=== PATIENT | male | born 1945 ===

== ENCOUNTER 2017-10-03 06:50 | Day surgery (SDC) | payer MEDICARE, MEDICAID ==
[2017-09-25 11:02] VITALS: BMI 26.6
[2017-10-03 07:30] LABS: BASO # 0.04 K/mm3 (0.0-2.0); BASO % 0.6 % (0.0-3.0); EOS # 0.2 (0.0-0.7); EOS % 3.3 % (1.5-5.0); GRAN # 2.78 (1.4-6.5); GRAN % 44.2 % (50.0-68.0); HEMATOCRIT 49.9 % (42.0-52.0); LYMPH # 2.7 (1.2-3.4); LYMPH % 43.2 % (22.0-35.0); MEAN CELL VOLUME 71.4 fl (80.0-105.0); MEAN CORPUSCULAR HEMOGLOBIN 23.5 pg (25.0-35.0); MEAN CORPUSCULAR HGB CONC 32.9 g/dl (31.0-37.0); MONO # 0.6 (0.1-0.6); MONO % 8.7 % (1.0-6.0); PLATELET COUNT 148 10^3/uL (120.0-450.0); RED CELL DISTRIBUTION WIDTH 15.8 % (11.5-14.5); WHITE BLOOD COUNT 6.3 10^3/ul (4.5-11.0)
[2017-10-03 07:44] LABS: INR 1.16 (0.93-1.08); PARTIAL THROMBOPLASTIN TIME 60.7 Seconds (25.1-36.5)
[2017-10-03 07:47] LABS: CALCIUM 9.3 mg/dL (8.4-10.5); POTASSIUM 4.2 mmol/L (3.6-5.0)
[2017-10-03] MEDS ORDERED: Lidocaine 2% Inj (20ml) ONE (08:33)
[2017-10-03] MEDS ORDERED: Iodixanol 320 MG/ML 200 ML BOTTLE IV ONE (08:34)
[2017-10-03] MEDS ORDERED: Midazolam 2 MG/2 ML VIAL ONE ×3 (08:34→09:46)
[2017-10-03] MEDS ORDERED: Iohexol 350mgl/ml 50 ML ONE (08:34)
[2017-10-03] MEDS ORDERED: Morphine 2 mg/ml ISec ONE (10:09)
[2017-10-03] MEDS ORDERED: Sodium Chloride 0.9% 1,000 ML IV SCH (11:00)
--- NOTE | 2017-10-03 11:54 | CARDCATH ---
PROCEDURE DATE: 10/03/2017 CARDIAC AND CATHETERIZATION AND PTCA HISTORY: The patient is a 72-year-old male with multiple cardiac risk factors including hypertension, hypercholesterolemia and diabetes mellitus and is a former smoker years ago who presents with chest pain. A stress test was abnormal. Because of this, cardiac catheterization was recommended. Pre-procedure, the patient was noted to have a creatinine of 1.6 in which he was then given aggressive IV hydration with normal saline. The right femoral artery was cannulated with a 6-[place]izen [place] sheath. There were no complications. I performed moderate sedation which included the presence of an independent trained observer that assisted in monitoring the patient's level of consciousness and physiologic status. After administration of fentanyl and Versed, my intra service time was 30 minutes. The coronary aortography, left ventriculogram and PTCA and stent of an LAD as well as attempted PTCA of an occluded circumflex were performed. There were no complications. The findings on catheterization revealed a right dominant circulation. The RCA revealed a dissected plaque in the midportion of the RCA causing a 70-80% stenosis in the midportion. The posterolateral branch as well as the PDA had two 80% lesions. The left main artery was unremarkable. The circumflex artery in the AV groove branch revealed intimal irregularities without significant stenosis. The obtuse marginal branch was occluded in its proximal portion. The LAD revealed a 80% stenosis in its proximal portion and with diffuse atherosclerosis. The diagonal vessels revealed diffuse disease with multiple 80% lesions throughout. Because of the poor distal targets for bypass surgery, we proceed with PTCA. The patient was started on intravenous Angiomax on the fluoroscopic guide, an EBU guider was placed in the ostium of the left main artery. An 0.014 ATW wire was used to cross the critical lesion in the LAD. A 2.0 balloon was utilized to predilate the lesion. A 3.0 x 12 mm drug-eluting stent was placed and deployed at 14 atmospheres of pressure in the LAD. A repeat coronary aortography revealed an excellent result with no residual stenosis and LINUS III flow. The balloon and wire were then brought back into the circumflex artery. A cross wire was used to cross the total occlusion. There was faint filling of the distal vessel which was found to be diffusely diseased throughout. A balloon was utilized to dilate the total occlusion which resulted in minimal flow down a diffusely diseased circumflex artery and circumflex obtuse marginal branch. Because of the diffuse nature of the distal vessel, the rest of the procedure was aborted. Repeat coronary aortography revealed slight improved flow down and occluded obtuse marginal branch but no stent was placed. Angio-Seal was attempted to close the femoral artery site which was unsuccessful and then the sheath will be removed on the floor and with manual compression. The patient tolerated the procedure well. In summary, the procedure was successful PTCA and stent of a 80% proximal LAD stenoses. Attempted opening an occluded obtuse marginal branch of the circumflex artery was unsuccessful due diffuse disease in the distal vessel. Cardiac catheterization reveals triple vessel CAD. LV function is normal. Given these findings, we will bring the patient back in 1 week for PTCA and stent of the RCA. Elliot Moon MD
--- NOTE | 2017-10-03 15:41 | CARD ---
APPROVED REPORT EKG Measurement Heart [id number] <Conclusion> Normal sinus rhythm Possible Left atrial enlargement Borderline ECG
[2017-10-03 17:11] LABS: HEMATOCRIT 44.7 % (42.0-52.0)
[2017-10-03 21:10] VITALS: RESP 20
[2017-10-04 06:10] VITALS: BP 157/80; PULSE 70; TEMP 98.2; O2SAT 98
[2017-10-04 06:46] LABS: BLOOD UREA NITROGEN 18 mg/dL (7-21); CALCIUM 8.9 mg/dL (8.4-10.5); CARBON DIOXIDE 23 mmol/L (21-33); CHLORIDE 104 mmol/L (98-107); GFR AFRICAN-AMERICAN > 60; GLUCOSE,RANDOM 111 mg/dL (70-110); POTASSIUM 3.9 mmol/L (3.6-5.0); SODIUM 138 mmol/L (132-148)
[2017-10-04 07:01] LABS: BASO # 0.02 K/mm3 (0.0-2.0); BASO % 0.2 % (0.0-3.0); EOS # 0.1 (0.0-0.7); EOS % 1.4 % (1.5-5.0); GRAN # 4.84 (1.4-6.5); GRAN % 55.2 % (50.0-68.0); HEMATOCRIT 42.5 % (42.0-52.0); LYMPH # 2.9 (1.2-3.4); MEAN CELL VOLUME 71.1 fl (80.0-105.0); MEAN CORPUSCULAR HEMOGLOBIN 22.9 pg (25.0-35.0); MEAN CORPUSCULAR HGB CONC 32.2 g/dl (31.0-37.0); MONO # 0.9 (0.1-0.6); MONO % 10.2 % (1.0-6.0); PLATELET COUNT 154 10^3/uL (120.0-450.0); RED CELL DISTRIBUTION WIDTH 15.9 % (11.5-14.5); WHITE BLOOD COUNT 8.8 10^3/ul (4.5-11.0)
--- NOTE | 2017-10-04 09:28 | PN ---
DATE: 10/04/2017 CARDIOLOGY FOLLOWUP SUBJECTIVE: The patient is ambulating without symptoms. PHYSICAL EXAMINATION: VITAL SIGNS: Blood pressure is 157/80, the heart rate is in the 70s. NECK: Negative JVD. LUNGS: Without rales. HEART: Reveal S1, S2. EXTREMITIES: Without edema. The right groin site reveals a large ecchymosis. LABORATORY DATA: Hemoglobin is 13.7. Chemistries, BUN and creatinine are unremarkable. Glucose is 110. IMPRESSION: 1. Status post multivessel coronary artery disease. 2. History of percutaneous transluminal coronary angioplasty and stent. 3. Diabetes mellitus. 4. Hypercholesterolemia. 5. Hypertension. PLAN: Given these findings, the patient's cardiac status is doing well. The ecchymoses will resolve. I have discussed with the patient about his multivessel CAD and his need for cardiac risk reduction program. The patient can be discharged today. He will remain on aspirin, Plavix and atorvastatin. We will bring him back in next week for PTCA of his other vessels. Elliot Moon MD
== END 2017-10-04 09:42 | disposition home or self-care (01) ==
LOC: CATH 06:50 → 2RSO 11:14 → CATH 10-04 09:42
PROVIDERS: ATTEND Internal Medicine Cardiovascular Disease
DX: I25.10 Atherosclerotic heart disease of native coronary artery without angina pectoris (principal); I10 Essential (primary) hypertension; E11.9 Type 2 diabetes mellitus without complications; E78.00 Pure hypercholesterolemia, unspecified; Z87.891 Personal history of nicotine dependence; Z79.84 Long term (current) use of oral hypoglycemic drugs; Z79.82 Long term (current) use of aspirin
CPT/HCPCS: 36415; 80048; 80061; 82948; 85014; 85018; 85025; 85610; 85730; 86850; 86900; 92920; 93005; 93458; 99152; 99153; C1725 ×2; C1760; C1769 ×4; C1874; C1887; C2629; C9600; J0360; J0583; J1644; J2250; J2270; J3010; J7030; J7040; Q9967